=== PATIENT | male | born 1985 | race Caucasian/White ===

== ENCOUNTER 2020-01-29 22:45 | Emergency (ER) | payer MEDICAID, SELFPAY ==
[~2020-01-29] VITALS: Ht 170.2 cm; Wt 72.6 kg
[2020-01-29 22:46] VITALS: Ht 170.2 cm; Wt 72.6 kg
[2020-01-29 23:54] VITALS: BP 106/62
== END 2020-01-29 23:54 | disposition home or self-care (01) ==
LOC: ED 22:45
DX: J06.9 Acute upper respiratory infection, unspecified (principal); Z20.828 Contact with and (suspected) exposure to other viral communicable diseases